=== PATIENT | male | born 1945 | race Caucasian/White ===

== ENCOUNTER 2021-02-13 14:51 | Outpatient (CLI) | payer MEDICARE | END 2021-02-13 14:52 | disposition home or self-care (01) | LOC: CSHULT 14:51 | PROVIDERS: ATTEND Internal Medicine Nephrology | DX: N28.89 Other specified disorders of kidney and ureter (principal) | CPT/HCPCS: 76770 ==

== ENCOUNTER 2024-03-23 15:08 | Outpatient (CLI) | payer MEDICARE | END 2024-03-23 15:09 | disposition home or self-care (01) | LOC: CSHCP 15:08 | PROVIDERS: ATTEND Internal Medicine Critical Care Medicine | DX: J98.4 Other disorders of lung (principal) | CPT/HCPCS: 94010; 94726; 94729; 94760 ==

== ENCOUNTER 2025-06-30 08:18 | Outpatient (CLI) | payer MEDICARE ==
[2025-06-30 09:17] LABS: Hematocrit 37.8 % (38.8-50.0); Hemoglobin 12.5 g/dL (13.5-17.5); Mean Corpuscular Hemoglobin 31.4 pg (27.0-33.0); Mean Corpuscular Volume 95.0 fL (81.2-95.1); Platelet Count 221 10x3/uL (150-450); Red Blood Cell (RBC) Count 3.98 10x6/uL (4.32-5.72); White Blood Cell (WBC) Count 8.46 10x3/uL (3.5-10.5)
[2025-06-30 10:06] LABS: INR-International Normal Ratio 1.0; PTT 24.6 sec (22.0-33.0); Prothrombin Time 10.5 sec (9.5-12.1)
[2025-06-30 10:21] LABS: Anion Gap 14 mmol/L (10-20); BUN (Urea Nitrogen) 36 mg/dL (8.4-25.7); Calc. Creatinine Clearance 0 mL/min (70-130); Calcium 8.7 mg/dL (7.8-10.44); Carbon Dioxide 22 mmol/L (23-31); Chloride 106 mmol/L (98-107); Glucose 171 mg/dL (83-110); Potassium 4.3 mmol/L (3.5-5.1); Sodium 138 mmol/L (136-145)
== END 2025-06-30 08:19 | disposition home or self-care (01) ==
LOC: CSHLAB 08:18
PROVIDERS: ATTEND Internal Medicine Cardiovascular Disease
DX: Z01.812 Encounter for preprocedural laboratory examination (principal); I47.19 Other supraventricular tachycardia
CPT/HCPCS: 80048; 85027; 85610; 85730

== ENCOUNTER → 2025-07-04 | Day surgery (SDC) | payer MEDICARE ==
[~2025-07-04] MED LIST: CEFAZOLIN 1 GM VIAL ONE; Iopamidol 300 61% 100 ML VIAL FS ONE; Lidocaine 1% (PF) 30 ML VIAL ONE; PNEUMOC 20-VAL CONJ-DIP CRM/PF 0.5 ML SYRINGE IM ONE; Sevoflurane 250 ML INH ANEST BOTTLE ONE; hydrALAZINE 20 MG/ML VIAL ONE
[2025-07-04 13:20] VITALS: BMI 43.3
[2025-07-04 13:22] VITALS: BP 171/79; TEMP 96.7
== END | disposition home or self-care (01) ==
LOC: CSHSDC 10:12
PROVIDERS: ATTEND Internal Medicine Cardiovascular Disease
PROC: 0JH63WZ Insertion of Totally Implantable Vascular Access Device into Chest Subcutaneous Tissue and Fascia, Percutaneous Approach (ICD-10-PCS; principal; 2025-07-04)
DX: I49.5 Sick sinus syndrome (principal); R00.2 Palpitations; I44.0 Atrioventricular block, first degree; I47.19 Other supraventricular tachycardia; R00.1 Bradycardia, unspecified; I10 Essential (primary) hypertension; I35.8 Other nonrheumatic aortic valve disorders; E11.9 Type 2 diabetes mellitus without complications; E78.5 Hyperlipidemia, unspecified; E66.813 Obesity, class 3; Z68.41 Body mass index [BMI] 40.0-44.9, adult; Z79.899 Other long term (current) drug therapy; Z79.82 Long term (current) use of aspirin; Z79.84 Long term (current) use of oral hypoglycemic drugs; Z91.048 Other nonmedicinal substance allergy status; Z88.5 Allergy status to narcotic agent; Z88.2 Allergy status to sulfonamides
CPT/HCPCS: 33208; 71045; 82962; J0690; J1580; J3010; 36416; C1785; C1898; J0360; Q9967